=== PATIENT | male | born 1970 | race Two or more races ===

== ENCOUNTER 2025-04-03 16:12 | Emergency (ER) | payer OTHER ==
[~2025-04-03] VITALS: Ht 182.9 cm; Wt 111.1 kg
[2025-04-03] MEDS ORDERED: METFORMIN HCL1000 M2 PO (16:27)
[2025-04-03] MEDS ORDERED: ONDANSETRON HCL 2 MG/ML VIAL IV ONE (17:00)
[2025-04-03] MEDS ORDERED: FAMOTIDINE/PF 20 MG/2 ML VIAL IV ONE (17:00)
[2025-04-03] MEDS ORDERED: TAMSULOSIN HCL 0.4 MG CAP PO ONE ×2 (17:00→17:44)
[2025-04-03] MEDS ORDERED: KETOROLAC TROMETHAMINE 60 MG VIAL IM ONE ×2 (17:00→17:44)
[2025-04-03] MEDS ORDERED: FAMOTIDINE/PF 20 MG/2 ML VIAL ONE (17:45)
[2025-04-03] MEDS ORDERED: ONDANSETRON HCL 2 MG/ML VIAL ONE (17:45)
[2025-04-03 18:12] LABS: BASO % 0.3 % (0.1-1.2); EOS # 0.03 (0.04-0.54); EOS % 0.4 % (0.7-7.0); LYMPH # 0.66 (1.18-3.74); LYMPH % 8.5 % (19.3-53.1); MEAN PLATELET VOLUME 9.90 fl (9.4-12.4); MONO # 0.23 (0.24-0.82); MONO % 3.0 % (4.7-12.5); NEUT # 6.81 (1.56-6.13); NEUT % 87.5 % (34.0-71.1); RED CELL DISTRIBUTION WIDTH 11.7 % (11.6-14.4)
[2025-04-03 18:29] LABS: INR 1.06
[2025-04-03 18:35] LABS: ALT/SGPT 46 U/L (12-78); AST/SGOT 36 U/L (15-37); BILIRUBIN TOTAL 0.74 mg/dL (0.3-1.2); BUN CREA RATIO 17 (7.0-25.0); CREATININE SERUM 1.13 mg/dL (0.70-1.30); GFR 67.88; GLOBULINA 3.7 G/DL (2.4-3.5)
[2025-04-03 18:36] LABS: GLUCOSE FASTING 233 mg/dL (65-100); OSMOLALITY SERUM 297 MOSM/KG (275-295)
[2025-04-03 18:50] LABS: URINE APPEARANCE Clear; URINE BILIRRUBIN Negative (NEGATIVE); URINE BLOOD Negative; URINE COLOR Yellow; URINE KETONE Trace (NEGATIVE); URINE LEUKOCYTE Negative; URINE NITRATE Negative; URINE PROTEIN Negative (NEGATIVE); URINE UROBILINOGEN 0.2 E.U./dl
[2025-04-03 18:55] LABS: URINE BACTERIA 3.5 uL (0.0-1933); URINE CAST 0.14 uL (0.0-1.40); URINE EPITHELIAL CELLS 1.3 uL (0.0-38.8); URINE GLUCOSE 250 MG/DL (NEGATIVE); URINE RBC 1.3 uL (0.0-20.8); URINE WBC 1.0 uL (0.0-23.2)
[2025-04-03] MEDS ORDERED: TAMS0.4C PO (20:17)
[2025-04-03] MEDS ORDERED: KETO10TA2 PO (20:17)
== END 2025-04-03 23:10 | disposition home or self-care (01) ==
LOC: ER 16:13
DX: R10.A2 Flank pain, left side (principal); E11.9 Type 2 diabetes mellitus without complications; Z79.84 Long term (current) use of oral hypoglycemic drugs; N20.0 Calculus of kidney; K57.30 Diverticulosis of large intestine without perforation or abscess without bleeding; Z91.013 Allergy to seafood